=== PATIENT | female | born 1945 | race Hispanic/Latino ===

== ENCOUNTER 2018-05-10 13:56 | Inpatient (IN) | payer OTHER, MEDICARE ==
[~2018-05-10] VITALS: Ht 154.9 cm; Wt 57.5 kg
[2018-05-10 14:42] LABS: BASOPHILS % (AUTO) 0.7 % (0.0-5.0); HEMATOCRIT 39.9 % (36-48); LYMPHOCYTES % (AUTO) 26.7 % (21.0-51.0); MEAN CORPUSCULAR HEMOGLOBIN 29.6 pg (27.0-33.0); MEAN CORPUSCULAR VOLUME 87.2 fL (79-99); MONOCYTES % (AUTO) 5.6 % (3.0-13.0); PLATELET COUNT (AUTO) 305 K/uL (130-400); RED BLOOD CELL COUNT(AUTO) 4.58 MIL/uL (4.00-5.50); RED CELL DISTRIBUTION WIDTH 14.2 % (11.0-15.5); WHITE BLOOD COUNT (AUTO) 7.2 K/uL (4.8-10.8)
[2018-05-10 14:59] LABS: INR 0.93 (0.85-1.15); PARTIAL THROMBOPLASTIN TIME 30.7 SEC (26.3-35.5); PROTHROMBIN TIME 9.8 SEC (9.6-11.6)
[2018-05-10 15:15] LABS: CREATININE 0.7 mg/dL (0.5-1.5); POTASSIUM 3.8 mmol/L (3.5-5.1)
[2018-05-10 15:20] LABS: ALBUMIN 3.5 g/dL (3.5-5.0); BILIRUBIN,TOTAL 0.3 mg/dL (0.2-1.0); TOTAL PROTEIN, SERUM 7.1 g/dL (6.0-8.3)
[2018-05-10] MEDS ORDERED: IOHEXOL-350 75 ML VIAL IV ONE (16:45)
[2018-05-10] MEDS: SODIUM CHLORIDE 0.9% 1000ML 1,000 ML IV SCH (20:00)
[2018-05-10] MEDS ORDERED: ENOXAPARIN SODIUM 40 MG/0.4 ML SYRINGE SQ SCH (20:00)
[2018-05-10] MEDS ORDERED: ASPIRIN 325MG EC TAB 325 MG TABLET.DR PO SCH (20:00)
[2018-05-10] MEDS ORDERED: GADODIAMIDE 5 MMOL/10 ML VIAL 5 MMOL/10 ML ML IV ONE (20:39)
[2018-05-10] MEDS ORDERED: ATORVASTATIN CALCIUM 40 MG TABLET PO SCH (21:00)
[2018-05-10] MEDS: ATORVASTATIN CALCIUM 20 MG TABLET PO SCH (21:00)
[2018-05-10] MEDS ORDERED: ONDANSETRON HCL 4 MG/2 ML VIAL IV PRN (22:30)
[2018-05-10] MEDS ORDERED: ACETAMINOPHEN 325 MG TAB PO PRN (22:30)
[2018-05-10 22:52] LABS: APPEARANCE,URINE Clear (CLEAR); BILIRUBIN,URINE Negative (NEGATIVE); COLOR,URINE Yellow (YELLOW); GLUCOSE, URINE (UA) >=1000 mg/dL (NEGATIVE); KETONES,URINE Negative (NEGATIVE); LEUKOCYTE ESTERASE ,URINE Negative (NEGATIVE); NITRATE,URINE Negative (NEGATIVE); OCCULT BLOOD,URINE Negative (NEGATIVE); PH,URINE 6.5 (5.0-8.0); PROTEIN,URINE Negative (NEGATIVE)
[2018-05-10 22:57] LABS: HEMOGLOBIN A1C 10.7 % (4.0-6.0)
[2018-05-10] MEDS ORDERED: DEXTROSE 50%-WATER 50 ML DISP.SYRIN IV PRN (23:00)
[2018-05-10] MEDS ORDERED: GLUCAGON 1MG KIT 1 MG ML IM PRN (23:00)
[2018-05-10 23:08] LABS: BACTERIA,URINE None Seen /HPF (None Seen); RBC,URINE None Seen /HPF (0-1); SQUAMOUS EPITHELIAL CELL,UR Rare /HPF (0-2); WBC,URINE 0-1 /HPF (0-1); YEAST,URINE BUDDING None Seen /HPF (None Seen)
[2018-05-10 23:18] LABS: CRP QUANTITATIVE 5.3 mg/L (0.00-9.0); THYROID STIMULATING HORMONE 2.25 uIU/mL (0.36-3.74)
[2018-05-10] MEDS ORDERED: SODIUM CHLORIDE 0.9% 1000ML 1,000 ML IV ONE (23:53)
[2018-05-11] VITALS (8 sets, daily range): BP systolic 103–144; BP diastolic 53–76
[2018-05-11] MEDS ORDERED: ATORVASTATIN CALCIUM 20 MG TABLET ONE (00:29)
[2018-05-11] MEDS: SODIUM CHLORIDE 0.9% 1000ML 1,000 ML IV SCH ×3 (04:00→21:08)
[2018-05-11 06:14] LABS: BASOPHILS % (AUTO) 1.1 % (0.0-5.0); EOSINOPHILS % (AUTO) 2.1 % (0.0-8.0); HEMATOCRIT 38.4 % (36-48); LYMPHOCYTES % (AUTO) 30.1 % (21.0-51.0); MEAN CORPUSCULAR HEMOGLOBIN 29.6 pg (27.0-33.0); MEAN CORPUSCULAR HGB CONC 33.9 g/dL (32.0-36.0); MEAN CORPUSCULAR VOLUME 87.2 fL (79-99); MONOCYTES % (AUTO) 5.5 % (3.0-13.0); NEUTROPHILS % (AUTO) 61.2 % (40.0-77.0); PLATELET COUNT (AUTO) 278 K/uL (130-400); RED BLOOD CELL COUNT(AUTO) 4.41 MIL/uL (4.00-5.50); RED CELL DISTRIBUTION WIDTH 14.2 % (11.0-15.5); WHITE BLOOD COUNT (AUTO) 6.2 K/uL (4.8-10.8)
[2018-05-11 06:25] LABS: CREATININE 0.5 mg/dL (0.5-1.5); POTASSIUM 4.4 mmol/L (3.5-5.1)
[2018-05-11 06:31] LABS: ALBUMIN 3.2 g/dL (3.5-5.0); BILIRUBIN,TOTAL 0.3 mg/dL (0.2-1.0); TOTAL PROTEIN, SERUM 6.8 g/dL (6.0-8.3)
[2018-05-11] MEDS: INSULIN HUMULIN R 100 UNIT/ML 3ML SQ SCH ×4 (07:30→21:00)
[2018-05-11] MEDS ORDERED: PANTOPRAZOLE 40 MG/VIAL IVP SCH (09:00)
[2018-05-11] MEDS ORDERED: ASPIRIN 325MG EC TAB 325 MG TABLET.DR PO SCH (09:00)
[2018-05-11] MEDS ORDERED: ENOXAPARIN SODIUM 40 MG/0.4 ML SYRINGE SQ SCH (09:00)
[2018-05-11] MEDS ORDERED: NAPR-1023 PO (09:27)
[2018-05-11] MEDS ORDERED: SERT100T12 PO (09:27)
[2018-05-11] MEDS ORDERED: ERGO500014 PO (09:27)
[2018-05-11] MEDS ORDERED: ROSU20TA30 PO (09:27)
[2018-05-11] MEDS ORDERED: ASCO500C18 PO (09:27)
[2018-05-11] MEDS ORDERED: CLOP75TA32 PO (09:27)
[2018-05-11] MEDS ORDERED: CEPH500C2 PO (09:27)
[2018-05-11] MEDS ORDERED: TRAZ-185 PO (09:27)
[2018-05-11] MEDS ORDERED: METF-446 PO (09:27)
[2018-05-11] MEDS ORDERED: CANA300T PO (09:27)
[2018-05-11] MEDS ORDERED: AEC81 PO (09:27)
[2018-05-11] MEDS ORDERED: LISI-613 PO (09:27)
[2018-05-11] MEDS ORDERED: CLOPIDOGREL BISULFATE 75 MG TAB PO ONE (17:45)
[2018-05-11] MEDS ORDERED: ASPIRIN 325 MG TABLET PO ONE (17:45)
[2018-05-11] MEDS: ATORVASTATIN CALCIUM 20 MG TABLET PO SCH (21:08)
[2018-05-12] MEDS: SODIUM CHLORIDE 0.9% 1000ML 1,000 ML IV SCH ×2 (03:07→12:00)
[2018-05-12 03:46] VITALS: BP 94/50
[2018-05-12] MEDS: INSULIN HUMULIN R 100 UNIT/ML 3ML SQ SCH ×3 (06:19→16:30)
[2018-05-12 07:26] VITALS: BP 105/65
[2018-05-12] MEDS ORDERED: PANTOPRAZOLE SODIUM 40 MG TABLET.DR PO SCH (07:58)
[2018-05-12] MEDS ORDERED: CLOPIDOGREL BISULFATE 75 MG TAB PO SCH (09:00)
[2018-05-12] MEDS ORDERED: ASPIRIN 325MG EC TAB 325 MG TABLET.DR PO SCH (09:00)
[2018-05-12 11:20] VITALS: BP 110/64
[2018-05-12 16:24] VITALS: BP 98/50
== END 2018-05-12 18:10 | disposition home or self-care (01) | DRG 68 ==
LOC: EDH 13:56 → EDHIP 19:47 → 2CH 05-11 08:02
PROVIDERS: ADMIT Internal Medicine; ATTEND Internal Medicine
DX: I65.1 Occlusion and stenosis of basilar artery (principal); H53.8 Other visual disturbances; H53.419 Scotoma involving central area, unspecified eye; E11.65 Type 2 diabetes mellitus with hyperglycemia; E11.319 Type 2 diabetes mellitus with unspecified diabetic retinopathy without macular edema; I10 Essential (primary) hypertension; E78.5 Hyperlipidemia, unspecified; H54.62 Unqualified visual loss, left eye, normal vision right eye; F32.9 Major depressive disorder, single episode, unspecified; I25.10 Atherosclerotic heart disease of native coronary artery without angina pectoris; Z90.710 Acquired absence of both cervix and uterus; Z83.3 Family history of diabetes mellitus
CPT/HCPCS: 36415; 70450; 70496; 70498; 70543; 70553; 71045; 80053; 80061; 81001; 82948; 83036; 84443; 84484; 85025; 85610; 85651; 85730; 86140; 92610; 93005; A9579; C9113; J1815; J7030; Q9967

== ENCOUNTER 2020-09-04 15:08 | Observation (INO) | payer MEDICARE ==
[~2020-09-04] VITALS: Ht 157.5 cm; Wt 84.4 kg
[~2020-09-04 15:08] MED LIST: AEC81 PO; ASCO500C18 PO; CANA300T PO; CEPH500C2 PO; CLOP75TA32 PO; ERGO500014 PO; LISI20TA24 PO; METF-446 PO; NAPR-1023 PO; ROSU20TA31 PO; SERT-440 PO; TRAZ-185 PO
[2020-09-04 16:44] LABS: BASOPHILS % (AUTO) 0.6 % (0.0-5.0); EOSINOPHILS % (AUTO) 1.5 % (0.0-8.0); HEMATOCRIT 37.3 % (36-48); LYMPHOCYTES % (AUTO) 28.4 % (21.0-51.0); MEAN CORPUSCULAR HEMOGLOBIN 27.6 pg (27.0-33.0); MEAN CORPUSCULAR HGB CONC 32.7 g/dL (32.0-36.0); MEAN CORPUSCULAR VOLUME 84.4 fL (79-99); MONOCYTES % (AUTO) 5.9 % (3.0-13.0); NEUTROPHILS % (AUTO) 63.5 % (40.0-77.0); PLATELET COUNT (AUTO) 219 K/uL (130-400); RED BLOOD CELL COUNT(AUTO) 4.42 MIL/uL (4.00-5.50); RED CELL DISTRIBUTION WIDTH 14.1 % (11.0-15.5); WHITE BLOOD COUNT (AUTO) 6.8 K/uL (4.8-10.8)
[2020-09-04 16:54] LABS: CREATININE 0.5 mg/dL (0.5-1.5)
[2020-09-04 16:59] LABS: ALBUMIN 3.2 g/dL (3.5-5.0); BILIRUBIN,TOTAL 0.2 mg/dL (0.2-1.0); TOTAL PROTEIN, SERUM 6.4 g/dL (6.0-8.3)
[2020-09-04] MEDS ORDERED: MECLIZINE HCL 25 MG TABLET ONE (18:51)
[2020-09-04] MEDS ORDERED: LACTULOSE 20 GM/30 ML UDCUP PO PRN (20:00)
[2020-09-04] MEDS ORDERED: ONDANSETRON HCL 4 MG/2 ML VIAL IV PRN (20:00)
[2020-09-04] MEDS ORDERED: ACETAMINOPHEN 325 MG TAB PO PRN ×2 (20:00)
[2020-09-04 20:25] LABS: HEMOGLOBIN A1C 13.3 % (4.0-6.0)
[2020-09-04 20:27] LABS: MAGNESIUM 1.8 mg/dL (1.80-2.40); PHOSPHORUS 3.9 mg/dL (2.5-4.9)
[2020-09-04] MEDS: FAMOTIDINE/PF 20 MG/2 ML VIAL IV SCH (21:00)
[2020-09-04] MEDS ORDERED: FAMOTIDINE/PF 20 MG/2 ML VIAL IV SCH (21:00)
[2020-09-04] MEDS ORDERED: IOHEXOL-350 75 ML VIAL IV ONE (21:28)
[2020-09-05] VITALS (7 sets, daily range): BP systolic 113–142; BP diastolic 43–72
[2020-09-05] MEDS ORDERED: INSULIN HUMULIN R 100 UNIT/ML 3ML SQ SCH ×3 (06:00→17:00)
[2020-09-05 06:02] LABS: CHOLESTEROL 197 mg/dL (<200); HDL CHOLESTEROL 120 mg/dL (35-85); LDL DIRECT 112 mg/dL (0-99); TRIGLYCERIDES 188 mg/dL (30-200)
[2020-09-05] MEDS ORDERED: INSULIN GLARGINE 100 UNITS/ML 10 ML VIAL SQ ONE (08:45)
[2020-09-05] MEDS ORDERED: GADODIAMIDE 10 MMOL/20 ML VIAL IV ONE (10:30)
[2020-09-05] MEDS ORDERED: INSU100V12 SQ (11:33)
[2020-09-05] MEDS ORDERED: LIRA0.6P SQ (11:36)
[2020-09-05] MEDS: ASPIRIN 81MG TAB.CHEW PO SCH (12:10)
[2020-09-05] MEDS: FAMOTIDINE/PF 20 MG/2 ML VIAL IV SCH ×2 (12:10→20:43)
[2020-09-05] MEDS: CLOPIDOGREL BISULFATE 75 MG TAB PO SCH (12:10)
[2020-09-05] MEDS: INSULIN HUMULIN R 100 UNIT/ML 3ML SQ SCH ×3 (12:40→22:23)
[2020-09-06 04:00] VITALS: BP 133/67
[2020-09-06 04:14] LABS: BASOPHILS % (AUTO) 0.6 % (0.0-5.0); EOSINOPHILS % (AUTO) 2.6 % (0.0-8.0); HEMATOCRIT 38.1 % (36-48); LYMPHOCYTES % (AUTO) 39.2 % (21.0-51.0); MEAN CORPUSCULAR HEMOGLOBIN 27.2 pg (27.0-33.0); MEAN CORPUSCULAR HGB CONC 32.8 g/dL (32.0-36.0); MONOCYTES % (AUTO) 6.7 % (3.0-13.0); NEUTROPHILS % (AUTO) 50.7 % (40.0-77.0); PLATELET COUNT (AUTO) 223 K/uL (130-400); RED BLOOD CELL COUNT(AUTO) 4.59 MIL/uL (4.00-5.50); RED CELL DISTRIBUTION WIDTH 13.9 % (11.0-15.5); WHITE BLOOD COUNT (AUTO) 6.6 K/uL (4.8-10.8)
[2020-09-06 04:39] LABS: ALBUMIN 3.1 g/dL (3.5-5.0); BILIRUBIN,TOTAL 0.2 mg/dL (0.2-1.0); CREATININE 0.6 mg/dL (0.5-1.5); POTASSIUM 4.2 mmol/L (3.5-5.1); TOTAL PROTEIN, SERUM 6.4 g/dL (6.0-8.3)
[2020-09-06] MEDS: INSULIN HUMULIN R 100 UNIT/ML 3ML SQ SCH (06:41)
[2020-09-06] MEDS ORDERED: INSULIN HUMULIN R 100 UNIT/ML 3ML SQ SCH (07:30)
[2020-09-06 07:48] VITALS: BP 121/50
[2020-09-06] MEDS ORDERED: INSULIN GLARGINE 100 UNITS/ML 10 ML VIAL SQ SCH (08:00)
[2020-09-06] MEDS: FAMOTIDINE/PF 20 MG/2 ML VIAL IV SCH (08:49)
[2020-09-06] MEDS: ASPIRIN 81MG TAB.CHEW PO SCH (08:49)
[2020-09-06] MEDS: CLOPIDOGREL BISULFATE 75 MG TAB PO SCH (08:49)
[2020-09-06] MEDS ORDERED: ASPI-1005 PO (08:54)
[2020-09-06] MEDS ORDERED: CLOP75TA14 PO (08:54)
[2020-09-06] MEDS ORDERED: ATOR40TA69 PO (08:54)
== END 2020-09-06 11:00 | disposition home or self-care (01) ==
LOC: EDH 15:08 → EDBD 19:49 → EDHIP 19:49 → 4AH 09-05 00:07
PROVIDERS: ADMIT Internal Medicine; ATTEND Internal Medicine
DX: I67.2 Cerebral atherosclerosis (principal); G45.8 Other transient cerebral ischemic attacks and related syndromes; E11.65 Type 2 diabetes mellitus with hyperglycemia; E11.319 Type 2 diabetes mellitus with unspecified diabetic retinopathy without macular edema; I10 Essential (primary) hypertension; E78.5 Hyperlipidemia, unspecified; E11.42 Type 2 diabetes mellitus with diabetic polyneuropathy; F32.9 Major depressive disorder, single episode, unspecified; Z90.710 Acquired absence of both cervix and uterus; Z79.4 Long term (current) use of insulin; Z79.899 Other long term (current) drug therapy
CPT/HCPCS: 36415 ×3; 70450; 70496; 70498; 70553; 80053 ×2; 80061; 82948 ×6; 83036; 83735; 84100; 84145; 84484; 85025 ×2; 92522; 92610; 93005; 96374; 96376 ×2; 97039; 97116; 97161; 99285; A9579; G0378 ×37; G8978; G8979; G8980; G8981; G8982; G8983; J1815 ×2; J3490 ×3; Q9967

== ENCOUNTER 2022-06-14 11:39 | Emergency (ER) | payer MEDICARE ==
[~2022-06-14] VITALS: Ht 160 cm; Wt 56.2 kg
[~2022-06-14 11:39] MED LIST changes: +ASPI-1005 PO; +ATOR40TA69 PO; +CLOP-31 PO; +INSU100V12 SQ; +LIRA0.6P SQ
[2022-06-14 11:59] VITALS: BP 135/67
[2022-06-14] MEDS ORDERED: IBUP-2070 PO (12:57)
[2022-06-14] MEDS ORDERED: IBUPROFEN 600 MG TABLET PO ONE (13:00)
== END 2022-06-14 13:24 | disposition home or self-care (01) ==
LOC: EDH 11:39
DX: L03.031 Cellulitis of right toe (principal); E11.9 Type 2 diabetes mellitus without complications; Z79.84 Long term (current) use of oral hypoglycemic drugs; Z90.710 Acquired absence of both cervix and uterus; M19.90 Unspecified osteoarthritis, unspecified site; Z79.02 Long term (current) use of antithrombotics/antiplatelets; Z79.4 Long term (current) use of insulin; Z79.82 Long term (current) use of aspirin; Z79.899 Other long term (current) drug therapy; Z79.1 Long term (current) use of non-steroidal anti-inflammatories (NSAID)
CPT/HCPCS: 99282